=== PATIENT | female | born 1945 | race Caucasian/White ===

== ENCOUNTER 2021-03-25 08:25 | Day surgery (SDC) | payer BC ==
[~2021-03-25 08:25] MED LIST: Lactated Ringers 1,000 ML IV SCH
[2021-03-25] MEDS ORDERED: Albuterol/Ipratropium 3.0-0.5 MG/3 ML Neb Soln NEB ONE (08:42)
[2021-03-25] MEDS ORDERED: fentaNYL 100 MCG/2 ML SDV ONE (08:46)
[2021-03-25] MEDS ORDERED: Propofol 200 MG/20 ML SDV ONE ×2 (08:47→09:00)
[2021-03-25 10:32] VITALS: BP 134/62; PULSE 80
--- NOTE | 2021-03-25 13:35 | OR ---
PREOPERATIVE DIAGNOSIS: History of colon polyps. Last colonoscopy was 02/2016 and revealed rectal polyp at 10 cm, removed using cold snare. POSTOPERATIVE DIAGNOSES: 1. 3 mm polyp at 40 cm, removed using few bites of cold forceps. 2. Mild sigmoid diverticulosis. 3. Mild hemorrhoids, not acutely inflamed. 4. Normal-appearing distal ileum. PROCEDURE: Colonoscopy with polypectomy x1 using cold forceps. SURGEON: Berry Pink M.D. ANESTHESIA: Monitored anesthesia care. BOWEL PREP: Good. DESCRIPTION OF PROCEDURE: Ileana is a 75-year-old female who was brought to the endoscopy suite after discussing risks and benefits of the procedure. Informed consent was obtained for conscious sedation and colonoscopy with or without biopsy and/or polypectomy. We also discussed possibility of missed lesions. Pre-procedure exam was unremarkable. IV, oxygen, and monitors were placed. The patient was placed in the left lateral decubitus position. Sedation was administered and a digital rectal exam was performed and unremarkable. Colonoscope was passed into the rectum and slowly advanced all the way to the cecum. Cecum was viewed and photographed. Ileocecal valve was intubated and distal ileum was normal in appearance. The colonoscope was slowly withdrawn and the mucosa was closed observed in a direct circumferential manner. The ascending colon was unremarkable. The transverse colon was unremarkable. The descending colon revealed 3 mm polyp at 40 cm, removed using a few bites of cold forceps. Sigmoid colon revealed some mild diverticulosis. Retroflexion was performed. Rectal mucosa was remarkable for some mild hemorrhoids, not acutely inflamed. Scope was removed. The patient tolerated the procedure well. The patient was monitored until that baseline status. Discharge instructions were reviewed and the patient was discharged in good condition. COMPLICATIONS: None. TOTAL TIME: 15 minutes. ESTIMATED BLOOD LOSS: Less than 1 mL. RECOMMENDATIONS/FOLLOWUP: We will await results of path report to determine ideal followup interval. I will have the patient hold her aspirin for 3 days to limit any chance of bleeding from the polypectomy site. I would like to kindly thank Dr. Lai for this referral. DMB: 03/25/2021 10:31:35 MODL: 03/25/2021 12:36:07 /[id number]
== END 2021-03-25 11:04 | disposition home or self-care (01) ==
LOC: VM.SDS 08:25
PROVIDERS: ATTEND Family Medicine
DX: Z12.11 Encounter for screening for malignant neoplasm of colon (principal); K63.5 Polyp of colon; K57.30 Diverticulosis of large intestine without perforation or abscess without bleeding; K64.9 Unspecified hemorrhoids; E78.00 Pure hypercholesterolemia, unspecified; I35.1 Nonrheumatic aortic (valve) insufficiency; Z79.899 Other long term (current) drug therapy; Z79.82 Long term (current) use of aspirin; Z88.2 Allergy status to sulfonamides; Z98.890 Other specified postprocedural states; Z90.49 Acquired absence of other specified parts of digestive tract
CPT/HCPCS: 00811; J2704; J3010; J7120; J7620-GY